=== PATIENT | male | born 1960 ===

== ENCOUNTER 2019-05-17 07:31 | Day surgery (SDC) | payer OTHER ==
[~2019-05-17 07:31] MED LIST: Buffered Lidocaine 1% SYRIN* 1 ML/SYRINGE INTRADERM ONE; Famotidine IV* 10 MG/ML 2 ML (20 mg) IV ONE; Lactated Ringers 1000 ML Bag* 1,000 ML IV SCH
[2019-05-17] MEDS ORDERED: Famotidine IV* 10 MG/ML 2 ML (20 mg) ONE (08:18)
[2019-05-17] MEDS ORDERED: ceFAZolin 2 GM in NS PREMIX(*) 2 GM/100 ML BAG IVPB ONE (08:18)
[2019-05-17] MEDS ORDERED: Dexamethasone IV* 4 MG/ML 1 ML (4 MG) ONE ×2 (08:24→11:12)
[2019-05-17] MEDS ORDERED: Ketorolac INJ* 30 MG/ML 1 ML VIAL ONE (08:24)
[2019-05-17] MEDS ORDERED: fentaNYL* 50 MCG/ML 2 ML VIAL (100 MCG VIAL) ONE ×2 (08:24→11:13)
[2019-05-17] MEDS ORDERED: Propofol* 10 MG/ML 20 ML BTL ONE ×2 (08:24→11:12)
[2019-05-17] MEDS ORDERED: Midazolam* 1 MG/ML 5 ML VIAL (5 MG) ONE ×2 (08:24→11:13)
[2019-05-17] MEDS ORDERED: Rocuronium* 10 MG/ML VIAL ONE (08:24)
[2019-05-17] MEDS ORDERED: Lidocaine 2% PF * 5 ML VIAL ONE ×2 (08:24→11:12)
[2019-05-17] MEDS ORDERED: Ondansetron INJ* 2 MG/ML VIAL ONE ×2 (08:24→11:12)
[2019-05-17] MEDS ORDERED: Bupivacaine 0.5% W/EPI SDV* 30 ML VIAL ONE (09:55)
[2019-05-17] MEDS ORDERED: EPHEDrine (Pressors)* 50 MG/ML VIAL ONE (10:37)
[2019-05-17] MEDS ORDERED: KETAMINE HCL* 50 MG/ML 10 ML VIAL ONE (11:13)
[2019-05-17] MEDS ORDERED: fentaNYL* 50 MCG/ML 2 ML VIAL (100 MCG VIAL) IV PRN (11:22)
[2019-05-17] MEDS ORDERED: Scopolamine 1.5 mg* PATCH TRANSDERM PRN (11:22)
[2019-05-17] MEDS ORDERED: Acetaminophen IV 1GM/100ML * 1,000 MG/100 ML VIAL IVPB ONE (11:22)
[2019-05-17] MEDS ORDERED: Naloxone* 0.4 MG/ML 1 ML VIAL IV PRN (11:22)
[2019-05-17] MEDS ORDERED: Ondansetron ODT TAB* 4 MG PO PRN (11:22)
[2019-05-17] MEDS ORDERED: Sugammadex * 200 MG/2 ML VIAL IV PUSH ONE (11:42)
--- NOTE | 2019-05-17 11:57 | BRIEFOPN ---
Brief Operative/Procedure Note - Operation Details Pre-Op Diagnosis: Bilateral inguinal hernias Post-Op Diagnosis: Bilateral inguinal hernias Procedures: Robotic bilateral inguinal hernia repair with bilateral mesh Surgeon(s)/Proceduralists: Dr. Dunham. Assist: NELLY Galdamez Anesthesia: GETA Estimated Blood Loss: <20cc Findings: As above Specimen(s)/Culture(s) Description: None Complications: None
[2019-05-17] MEDS ORDERED: Acetaminophen IV 1GM/100ML * 100 ML ONE (13:28)
[2019-05-17 14:30] VITALS: BP 120/81
--- NOTE | 2019-05-18 02:51 | OP ---
CC: Ilya Deluna MD * DATE OF OPERATION: 05/17/19 - [facility] DATE OF : 62 SURGEON: Dr. Dunham. OBSTETRICS AND GYNECOLOGY PROFESSOR: NELLY Alcantar ANESTHESIOLOGIST: Tremayne Ivey MD ANESTHESIA: General endotracheal. PRE-OP DIAGNOSIS: Bilateral inguinal hernias. POST-OP DIAGNOSIS: Bilateral inguinal hernias. OPERATIVE PROCEDURE: Robotic preperitoneal repair of bilateral inguinal hernias with mesh. ESTIMATED BLOOD LOSS: Minimal. IV FLUIDS: Crystalloid. SPECIMEN: None. DRAINS: None. COMPLICATIONS: None. COUNTS: The instrument, needle and sponge counts were correct. DESCRIPTION OF PROCEDURE: The patient was brought to the operating room and placed on the table supine. Sequential compression devices were placed on both lower extremities. General anesthesia was administered. His abdomen was prepped and draped in usual sterile fashion. He received approximate intravenous antibiotics. A time-out was performed. Pneumoperitoneum was achieved through a transumbilical placement of the Veress needle. The carbon dioxide was insufflated to a pressure of 12 mmHg. An 8 mm optical trocar was then placed in the left upper quadrant and 2 additional 8 mm trocars were placed across the abdomen, one supraumbilical and one right upper quadrant. Mesh and suture were introduced and the robot was then docked in the usual fashion. Inspection revealed bilateral direct inguinal hernias. Dissection proceeded first on the right side approximately 8 cm above the ilioinguinal ligament. The peritoneal flap was raised, sharply incised the peritoneum from the anterior superior iliac spine across to the median umbilical ligament. Preperitoneal space was developed bluntly down to the level of the pubic symphysis and Wiliam's ligament. Direct inguinal hernias were identified and the peritoneum reduced. Inferior epigastric vessels were identified and preserved. Peritoneum was dissected free from the spermatic cord structures, which were preserved and the dissection proceeded laterally to the anterior superior iliac spine. After adequate creation of the pocket, the right sided Medtronic ProGrip anatomic mesh was placed and it was positioned to cross the midline covering the direct, indirect, and femoral spaces. The dissection then proceeded on the left side, again incising the peritoneum sharply and then dissecting bluntly to the midline entering into the space that was previously dissected on the contralateral side. The dissection again was performed reducing the peritoneum from the direct space preserving the inferior epigastric vessels and preserving the spermatic cord structures while creating a wide pocket out to the anterior superior iliac spine. The left side anatomic Medtronic ProGrip mesh was then positioned and then each peritoneal flap was closed with a 3-0 V-Loc 90 suture. After completing the closure, sutures were removed. Instrumentation, ports and carbon dioxide were removed. Skin incisions were closed with 4-0 Monocryl in subcuticular fashion and DermaFlex applied. The patient tolerated the procedure well and was extubated uneventfully, transferred to Recovery in stable condition. [id number]/[facility] #: [id number] [place]
[2019-05-20] MEDS ORDERED: Scopolamine PATCH Remove* 1 NOTE MISC PATCH OFF ONE (11:23)
== END 2019-05-17 14:33 | disposition home or self-care (01) ==
LOC: OR 07:31
PROVIDERS: ATTEND Surgery
DX: K40.20 Bilateral inguinal hernia, without obstruction or gangrene, not specified as recurrent (principal)
CPT/HCPCS: 49650; S2900; C1781; J0690; J1100; J1885; J2250; J2405; J2704; J3010